=== PATIENT | female | born 1975 | race African-American/Black ===

== ENCOUNTER 2018-06-14 10:04 | Emergency (ER) | payer MEDICAID, OTHER ==
[~2018-06-14] VITALS: Ht 160 cm; Wt 66.7 kg
[~2018-06-14 10:04] MED LIST: ACETAMINOPHEN-1 EAC1 ORAL; ACYCLOVIR400 MG ORAL; AZITHROMYCIN250 MG ORAL; AZITHROMYCIN250 MG PO; CYCLOBENZAPRINE10 MG ORAL; CYCLOBENZAPRINE10 MG PO; FERROUS SULFAT325 MG ORAL; IBUPROFEN600 MG ORAL; IBUPROFEN600 MG PO; NAPROSYN500 M1 ORAL; NKM; TRAMADOL HCL50 MG ORAL
--- NOTE | 2018-06-14 10:29 | Emergency Room Report ---
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 Dumont, but symptoms have been intermittent so she reports not much was done yet. Currently she is not having any pain but reported last night she noticed it got worse and then he was having it intermittently today so came in. She gets it every few weeks she reports. She denies any respirophasic component, but he does seem to worsen at night, denies any vomiting, diarrhea, diaphoresis, syncope, leg swelling, recent travel, hemoptysis. She cannot think of any alleviating or exacerbating factors other than that it is worse at night and then sometimes she is been stressed out about home life situations and that is when she seems to notice it more. Allergies: Coded Allergies: No Known Allergies (Unverified , 02/29/12) Patient History Past Medical History: see triage record Last Menstrual Period: 01/2018 Reviewed Nursing Documentation: PMH: Agreed; PSxH: Agreed Nursing Documentation-PMH Past Medical History: No History, Except For Hx Cardiac Problems: No - SICKLE CELL, KNEE ARTHRITIS Review of Systems All Other Systems: negative except mentioned in HPI Physical Exam Vital Signs Date Time Temp Pulse Resp B/P (MAP) Pulse Ox O2 Delivery O2 Flow Rate FiO2 06/14/18 10:18 97.5 67 16 146/67 99 Room Air Sp02 EP Interpretation: reviewed, normal General Appearance: no apparent distress, alert, non-toxic Head: normocephalic Eyes: bilateral eye normal inspection, bilateral eye PERRL, bilateral eye EOMI ENT: normal ENT inspection, hearing grossly normal, normal pharynx, no angioedema, normal voice, moist mucus membranes Neck: normal inspection, full range of motion, supple, supple/symm/no masses Respiratory: chest non-tender, lungs clear, normal breath sounds, chest symmetrical, palpation of chest normal Cardiovascular #1: normal peripheral pulses, regular rate, rhythm Cardiovascular #2: 2+ radial (R), 2+ radial (L), 2+ dorsalis pedis (R), 2+ dorsalis pedis (L) Gastrointestinal: normal inspection, non tender, soft, no mass, no guarding, no rebound Rectal: deferred Genitourinary: normal inspection, no CVA tenderness Musculoskeletal: back normal, gait/station normal, normal range of motion, non- tender, no calf tenderness, Ronny's Sign negative Neurologic: alert, responsive, merry go round operator III-XII nml as tested, motor strength/tone normal, sensory intact, speech normal Psychiatric: judgement/insight normal, memory normal, mood/affect normal, anxious Skin: normal color, no rash, warm/dry, normal turgor Lymphatic: no adenopathy Medical Decision Making Diagnostic Impression: Primary Impression: Chest pain ER Course Patient with anxiety, is PERC rule negative for PE, no [id number] on ekg, normal workup, suspect anxiety. HEART score deems her low risk for ACS, will have her f/u with her PMD again, or return to ER for recurrent CP, or SOB, or new symptoms. EKG Diagnostic Results EKG Time: 10:22 EP Interpretation: no stemi Rate: normal Rhythm: NSR ST Segments: no acute changes ASA given to the pt in ED: No Rhythm Strip Diag. Results Rhythm Strip Time: 11:27 EP Interpretation: yes Rate: 74 Rhythm: NSR, no PVC's, no ectopy Chest X-Ray Diagnostic Results Chest X-Ray Diagnostic Results : Chest X-Ray Ordered: Yes # of Views/Limited/Complete: 1 View Indication: Chest Pain EP Interpretation: Yes Interpretation: no consolidation, no effusion, no pneumothorax, no acute cardiopulmonary disease Impression: No acute disease Electronically Signed by: Onur Membreno MD Last Vital Signs Date Time Temp Pulse Resp B/P (MAP) Pulse Ox O2 Delivery O2 Flow Rate FiO2 06/14/18 10:18 97.5 67 16 146/67 99 Room Air Disposition: HOME, SELF-CARE Condition: Stable Referrals: NON PHYSICIAN (PCP) ONUR MEMBRENO M.D Jun 14, 2018 10:29
[2018-06-14 10:45] VITALS: BP 146/67
[2018-06-14 10:49] LABS: BASOPHILS % (AUTO) 0.7 % (0.0-2.0); EOSINOPHILS % (AUTO) 5.1 % (0.0-3.0); HEMATOCRIT 31.5 % (37.0-47.0); LYMPHOCYTES % (AUTO) 38.5 % (20.0-45.0); MEAN CORPUSCULAR VOLUME 74 FL (80-99); MONOCYTES % (AUTO) 9.3 % (1.0-10.0); NEUTROPHILS % (AUTO) 46.4 % (45.0-75.0); PLATELET COUNT 148 K/UL (150-450); RED BLOOD COUNT 4.25 M/UL (4.20-5.40); RED CELL DISTRIBUTION WIDTH 14.3 % (11.6-14.8); WHITE BLOOD COUNT 3.6 K/UL (4.8-10.8)
[2018-06-14 10:55] LABS: ANION GAP 9 mmol/L (5-15); BLOOD UREA NITROGEN 8 mg/dL (7-18); CALCIUM 9.1 MG/DL (8.5-10.1); CARBON DIOXIDE 26 MMOL/L (21-32); CHLORIDE 106 MMOL/L (98-107); CREATININE 0.7 MG/DL (0.55-1.30); POTASSIUM 4.2 MMOL/L (3.5-5.1); SODIUM 141 MMOL/L (136-145)
--- NOTE | 2018-06-14 10:55 | NUR ---
ED Nurse Note:pt. c/o on/off chest pain for 4 months, also reported going through lots of personal stress, A/Ox4 ambulatory, VSS, urine and blood sent to labs
[2018-06-14 11:00] LABS: ALANINE AMINOTRANSFERASE 31 U/L (12-78); ALBUMIN/GLOBULIN RATIO 1.2 (1.0-2.7); ALKALINE PHOSPHATASE 59 U/L (46-116); ASPARTATE AMINO TRANSFERASE 22 U/L (15-37); BILIRUBIN,TOTAL 0.6 MG/DL (0.2-1.0)
[2018-06-14] MEDS ORDERED: PEPCID AC20 M2 PO (11:32)
[2018-06-14 12:02] VITALS: BP 139/68
--- NOTE | 2018-06-14 12:09 | Diagnostic Imaging Report ---
Indication: Chest pain Technique: One view of the chest Comparison: none Findings: Lungs and pleural spaces are clear. Heart size is normal Impression: No acute process
[2018-06-14 12:10] VITALS: BP 139/68
--- NOTE | 2018-06-14 12:11 | NUR ---
ER DISCHARGE NOTE: Patient is cleared to be discharged per ERMD, pt is aox4, on room air, with stable vital signs. pt was given dc and prescription instructions, pt was able to verbalize understanding, pt id band and iv site removed without complications. pt is able to ambulate with steady gait. pt took all belongings.
== END 2018-06-14 12:11 | disposition home or self-care (01) ==
LOC: EMR 10:20
DX: R07.89 Other chest pain (principal); D57.1 Sickle-cell disease without crisis; M19.90 Unspecified osteoarthritis, unspecified site
CPT/HCPCS: 36415; 71045; 80053; 84484; 85025; 93005; 99284

== ENCOUNTER 2018-06-19 12:04 | Emergency (ER) | payer MEDICAID ==
[~2018-06-19] VITALS: Ht 160 cm; Wt 66.7 kg
--- NOTE | 2018-06-19 12:03 | NUR ---
ED Nurse Note: Pt BIBA from home w/ complaints of lower back pain and spasm in the area since last night. Pt is complaining of 10/10 pain. Non radiating. Pt appeared in the Er w/ facial grimacing. Tenderness to touch on the lower back. Pt denies injury. Pt is a + o x4. Ambulatory. Skin warm to touch.
[2018-06-19 12:04] VITALS: BP 122/74
[~2018-06-19 12:04] MED LIST changes: +PEPCID AC20 M2 PO
[2018-06-19] MEDS ORDERED: Morphine Sulfate 4mg/ml Inj (IV USE ONLY) IVP ONE ×2 (12:45→14:15)
[2018-06-19] MEDS ORDERED: Ketorolac 30mg Inj IV ONE (12:45)
[2018-06-19] MEDS ORDERED: Methocarbamol 500mg tab ORAL ONE (12:45)
--- NOTE | 2018-06-19 12:53 | NUR ---
ED Nurse Note: blood and urine sent to lab
[2018-06-19 13:09] LABS: APPEARANCE,URINE CLEAR; BILIRUBIN, URINE NEGATIVE (NEGATIVE); COLOR,URINE PALE YELLOW; GLUCOSE, URINE (UA) NEGATIVE (NEGATIVE); KETONES,URINE NEGATIVE (NEGATIVE); LEUKOCYTE ESTERASE ,URINE NEGATIVE (NEGATIVE); NITRITE,URINE NEGATIVE (NEGATIVE); PH,URINE 5 (4.5-8.0); PROTEIN,URINE NEGATIVE (NEGATIVE); UROBILINOGEN,URINE NORMAL MG/DL (0.0-1.0)
[2018-06-19 13:14] LABS: BASOPHILS % (AUTO) 1.3 % (0.0-2.0); EOSINOPHILS % (AUTO) 2.3 % (0.0-3.0); HEMATOCRIT 27.9 % (37.0-47.0); LYMPHOCYTES % (AUTO) 22.5 % (20.0-45.0); MEAN CORPUSCULAR VOLUME 74 FL (80-99); MONOCYTES % (AUTO) 5.3 % (1.0-10.0); NEUTROPHILS % (AUTO) 68.7 % (45.0-75.0); PLATELET COUNT 168 K/UL (150-450); RED BLOOD COUNT 3.77 M/UL (4.20-5.40); RED CELL DISTRIBUTION WIDTH 14.8 % (11.6-14.8); WHITE BLOOD COUNT 13.8 K/UL (4.8-10.8)
[2018-06-19 13:23] LABS: ANION GAP 10 mmol/L (5-15); BLOOD UREA NITROGEN 10 mg/dL (7-18); CALCIUM 9.8 MG/DL (8.5-10.1); CARBON DIOXIDE 29 MMOL/L (21-32); CHLORIDE 103 MMOL/L (98-107); CREATININE 0.7 MG/DL (0.55-1.30); POTASSIUM 3.7 MMOL/L (3.5-5.1); SODIUM 142 MMOL/L (136-145)
[2018-06-19 13:35] LABS: ALANINE AMINOTRANSFERASE 35 U/L (12-78); ALBUMIN 4.2 G/DL (3.4-5.0); ALBUMIN/GLOBULIN RATIO 1.3 (1.0-2.7); ALKALINE PHOSPHATASE 87 U/L (46-116); ASPARTATE AMINO TRANSFERASE 29 U/L (15-37)
[2018-06-19 14:11] VITALS: BP 106/80
--- NOTE | 2018-06-19 15:33 | Emergency Room Report ---
History of Present Illness General Chief Complaint: Back Pain-No Injury Source: Patient Present Illness HPI Patient presents with increased back pain. This is worsened over the last 3 days. 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 She states she feels muscle spasms. The pain does not radiate to her legs. Patient has sickle SC.disease. This does not feel like an exacerbation of that. She denies fevers or chills although she complains of hot flashes. There is no incontinence, extremity numbness, recent trauma, oncologic problems or use of blood thinners. Prior to coming in she took Percocet and Naprosyn which helps somewhat. The pain is rated 10/10 aching and spasms. She is been seen in the past with exacerbation of back pain. She believes that the change in her job may be related to her presentation today. Her last period was in 2015. She is uncertain why her menstruation stopped. In 2013 her diagnosis was drug-seeking behavior. Allergies: Coded Allergies: No Known Allergies (Unverified , 02/29/12) Patient History Past Medical History: see triage record, other - SC disease Social History: Denies: smoking, alcohol use, drug use Social History Narrative one of her twins brought her -there 20 years old -[place] for [employer] Last Menstrual Period: 2016 Now: No Reviewed Nursing Documentation: PMH: Agreed; PSxH: Agreed Nursing Documentation-PMH Past Medical History: No History, Except For Review of Systems All Other Systems: negative except mentioned in HPI Physical Exam Vital Signs Date Time Temp Pulse Resp B/P (MAP) Pulse Ox O2 Delivery O2 Flow Rate FiO2 06/19/18 11:54 98.4 82 20 06/19/18 11:54 126/69 100 Room Air Sp02 EP Interpretation: reviewed, normal General Appearance: well appearing, GCS 15, mild distress Head: normocephalic Eyes: bilateral eye normal inspection, bilateral eye PERRL, bilateral eye EOMI ENT: moist mucus membranes Neck: supple Respiratory: lungs clear, normal breath sounds Cardiovascular #1: regular rate, rhythm Cardiovascular #2: 2+ radial (R) Gastrointestinal: normal inspection, normal bowel sounds, non tender, no mass, non-distended Musculoskeletal: gait/station normal, normal range of motion, tender - Lumbar spine with muscle spasm paraspinous muscles straight leg raise negative bilaterally but increased lumbar pain. Neurologic: alert, oriented x3, motor strength/tone normal, DTRs symmetric, sensory intact Psychiatric: mood/affect normal - But in pain Skin: normal inspection, warm/dry Medical Decision Making Diagnostic Impression: Primary Impression: Back pain Qualified Codes: M54.5 - Low back pain Additional Impression: Muscle spasm ER Course Patient with SC disease presents withLumbar pain with repetitive motion. There are no red flag symptoms. Differential includes lumbar strain, muscle spasm, UTI amongst others. Imaging is not indicated. Labs and urinalysis ordered. Treatment with IV analgesia with morphine, Toradol and Robaxin. Labs significant for white count 13.8. No left shift. CMP normal. Urinalysis clear. Patient still complaining about pain. Morphine repeated. Discussed findings with patient and most likely etiology of back pain. She states she still feels some spasming of her lower back. Discussed treatment plan and recommended physical therapy. Patient has Percocet at home. Patient stable for outpatient observation and treatment. Laboratory Tests Test 06/19/18 12:40 White Blood Count 13.8 K/UL (4.8-10.8) H Red Blood Count 3.77 M/UL (4.20-5.40) L Hemoglobin 9.0 G/DL (12.0-16.0) L Hematocrit 27.9 % (37.0-47.0) L Mean Corpuscular Volume 74 FL (80-99) L Mean Corpuscular Hemoglobin 23.8 PG (27.0-31.0) L Mean Corpuscular Hemoglobin Concent 32.3 G/DL (32.0-36.0) Red Cell Distribution Width 14.8 % (11.6-14.8) Platelet Count 168 K/UL (150-450) Mean Platelet Volume 7.6 FL (6.5-10.1) Neutrophils (%) (Auto) 68.7 % (45.0-75.0) Lymphocytes (%) (Auto) 22.5 % (20.0-45.0) Monocytes (%) (Auto) 5.3 % (1.0-10.0) Eosinophils (%) (Auto) 2.3 % (0.0-3.0) Basophils (%) (Auto) 1.3 % (0.0-2.0) Prothrombin Time 10.9 SEC (9.30-11.50) Prothrombin Time INR 1.0 (0.9-1.1) PTT 24 SEC (23-33) Urine Color Pale yellow Urine Appearance Clear Urine pH 5 (4.5-8.0) Urine Specific [place] 1.020 (1.005-1.035) Urine Protein Negative (NEGATIVE) Urine Glucose (UA) Negative (NEGATIVE) Urine Ketones Negative (NEGATIVE) Urine Blood 1+ (NEGATIVE) H Urine Nitrite Negative (NEGATIVE) Urine Bilirubin Negative (NEGATIVE) Urine Urobilinogen Normal MG/DL (0.0-1.0) Urine Leukocyte Esterase Negative (NEGATIVE) Urine RBC 0-2 /HPF (0 - 2) Urine WBC 0-2 /HPF (0 - 2) Urine Squamous Epithelial Cells Few /LPF (NONE/OCC) Urine Bacteria Occasional /HPF (NONE) Urine Mucus Moderate /LPF (NONE/OCC) H Urine HCG, Qualitative Negative (NEGATIVE) Sodium Level 142 MMOL/L (136-145) Potassium Level 3.7 MMOL/L (3.5-5.1) Chloride Level 103 MMOL/L (98-107) Carbon Dioxide Level 29 MMOL/L (21-32) Anion Gap 10 mmol/L (5-15) Blood Urea Nitrogen 10 mg/dL (7-18) Creatinine 0.7 MG/DL (0.55-1.30) Estimate Glomerular Filtration Rate > 60 mL/min (>60) Glucose Level 93 MG/DL (74-106) Calcium Level 9.8 MG/DL (8.5-10.1) Total Bilirubin 1.0 MG/DL (0.2-1.0) Aspartate Amino Transferase (AST) 29 U/L (15-37) Alanine Aminotransferase (ALT) 35 U/L (12-78) Alkaline Phosphatase 87 U/L (46-116) Total Protein 7.4 G/DL (6.4-8.2) Albumin 4.2 G/DL (3.4-5.0) Globulin 3.2 g/dL Albumin/Globulin Ratio 1.3 (1.0-2.7) Last Vital Signs Date Time Temp Pulse Resp B/P (MAP) Pulse Ox O2 Delivery O2 Flow Rate FiO2 06/19/18 15:43 98.4 73 16 103/64 98 Room Air Status: improved Disposition: HOME, SELF-CARE Condition: Improved Scripts Ibuprofen* (MOTRIN*) 600 Mg Tablet 600 MG ORAL Q6H PRN for For Pain, #16 TAB Prov: Bon Borjas MD 06/19/18 Methocarbamol* (ROBAXIN*) 500 Mg Tablet 500 MG PO TID, #10 TAB 0 Refills Prov: Bon Borjas MD 06/19/18 Bon Borjas MD Jun 19, 2018 15:33
[2018-06-19] MEDS ORDERED: ROBAXIN500 MG PO (15:36)
[2018-06-19] MEDS ORDERED: IBUPROFEN600 MG ORAL (15:36)
[2018-06-19 15:43] VITALS: BP 103/64
== END 2018-06-19 15:54 | disposition home or self-care (01) ==
LOC: EDBD 12:04 → EMR 13:45
DX: M54.5 Low back pain (principal); M62.830 Muscle spasm of back; D57.1 Sickle-cell disease without crisis
CPT/HCPCS: 36415; 80053; 81001; 81025; 85025; 85610; 85730; 96374; 96375; 96376; 99284; J1885; J2270; J2405

== ENCOUNTER 2018-09-11 05:16 | Emergency (ER) | payer MEDICAID ==
[~2018-09-11] VITALS: Ht 165.1 cm; Wt 67.1 kg
[~2018-09-11 05:16] MED LIST changes: +NEOMYC-POLYM-D3.5 G1 OP; +ROBAXIN500 MG PO
[2018-09-11 05:36] VITALS: BP 150/94
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
--- NOTE | 2018-09-11 05:39 | NUR ---
ED Nurse Note: pt states she took percocet at home but didn't relieve pain .
[2018-09-11] MEDS ORDERED: Acetaminophen 500mg (ES) tab ORAL ONE (05:45)
[2018-09-11] MEDS ORDERED: VALIUM5 MG ORAL (05:47)
[2018-09-11] MEDS ORDERED: HYDROCODON-ACE1 EA15 ORAL (05:47)
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
--- NOTE | 2018-09-11 06:44 | NUR ---
ED Nurse Note: pt cleared to be d/c per ERMD pt discharge and aftercare instruction provided w/ prescription, pt education done via discussion and handout, pt advised to follow up with pcp or return to ed if changes in condition, pt verbalized understanding and agrees with plan, vss, ambulatory w/ steady gait left w/ all belongings. soft collar applied prior to dc by needle loom weaver.
[2018-09-11 06:45] VITALS: BP 145/76
--- NOTE | 2018-09-11 12:14 | Diagnostic Imaging Report ---
Indication: Neck Pain Findings: 5 views of the cervical spine were obtained. There is no fracture. There is moderate narrowing of the C4-5, C5-6 and C6-7 discs with endplate osteophyte formation. Uncovertebral spurs are present at multiple levels bilaterally probably slightly worse on the right. There may be mild narrowing of the neural foramen on the right at the C3-4 and C4-5. Findings may be confirmed and further evaluated on cross-sectional imaging as needed. The open-mouth view is negative the showing good alignment. IMPRESSION: Moderate degenerative disease of the cervical spine as described above
== END 2018-09-11 06:45 | disposition home or self-care (01) ==
LOC: EMR 05:39
DX: S16.1XXA Strain of muscle, fascia and tendon at neck level, initial encounter (principal); V43.52XA Car driver injured in collision with other type car in traffic accident, initial encounter; Y92.410 Unspecified street and highway as the place of occurrence of the external cause
CPT/HCPCS: 72052; 99283

== ENCOUNTER 2020-05-23 20:46 | Emergency (ER) | payer MEDICAID ==
[~2020-05-23] VITALS: Ht 160 cm; Wt 67.6 kg
[~2020-05-23 20:46] MED LIST changes: +HYDROCODON-ACE1 EA15 ORAL; +VALIUM5 MG ORAL
--- NOTE | 2020-05-23 21:00 | NUR ---
Pte came to Er ambulatory c/o chest pain since 4 hours ago , pte says she ate a food a then the pain begun . New orders received from EDP and carried out. All procedures were explain to the patient . Patient verbalized understanding. Safety and comfort measures taken: bed set in low position, frequent rounds, call light within reach. Will continue monitoring the patient during the sift.
[2020-05-23 21:20] VITALS: BP 111/74
[2020-05-23] MEDS ORDERED: Lidocaine 2% Visc 15ml soln ORAL ONE (21:30)
[2020-05-23 22:00] VITALS: BP 136/89
[2020-05-23 22:02] LABS: APPEARANCE,URINE CLEAR; BASOPHILS % (AUTO) 2.1 % (0.0-2.0); BILIRUBIN, URINE NEGATIVE (NEGATIVE); COLOR,URINE PALE YELLOW; EOSINOPHILS % (AUTO) 2.1 % (0.0-3.0); GLUCOSE, URINE (UA) NEGATIVE (NEGATIVE); HEMATOCRIT 31.4 % (37.0-47.0); KETONES,URINE NEGATIVE (NEGATIVE); LEUKOCYTE ESTERASE ,URINE NEGATIVE (NEGATIVE); LYMPHOCYTES % (AUTO) 33.8 % (20.0-45.0); MEAN CORPUSCULAR VOLUME 73 FL (80-99); MONOCYTES % (AUTO) 7.1 % (1.0-10.0); NEUTROPHILS % (AUTO) 54.8 % (45.0-75.0); NITRITE,URINE NEGATIVE (NEGATIVE); PH,URINE 9 (4.5-8.0); PLATELET COUNT 162 K/UL (150-450); PROTEIN,URINE NEGATIVE (NEGATIVE); RED BLOOD COUNT 4.28 M/UL (4.20-5.40); RED CELL DISTRIBUTION WIDTH 16.2 % (11.6-14.8); UROBILINOGEN,URINE NORMAL MG/DL (0.0-1.0); WHITE BLOOD COUNT 6.9 K/UL (4.8-10.8)
--- NOTE | 2020-05-23 22:03 | Diagnostic Imaging Report ---
EXAM: XR Chest, 1 View CLINICAL HISTORY: CP TECHNIQUE: Frontal view of the chest. COMPARISON: 06/14/2018 FINDINGS: Lungs: No consolidation or mass. Pleural space: No acute findings Heart: No cardiomegaly. Bones/joints: No acute findings. IMPRESSION: No acute cardiopulmonary process.
--- NOTE | 2020-05-23 22:09 | NUR ---
Patient in bed in comfortable position and stable condition. All vitals signs were taken and reported. Urine and blood were collected and sent them to the lab. All medications were administered without adverse reaction. Patient continuous attached to the monitor.
[2020-05-23 22:16] LABS: ANION GAP 9 mmol/L (5-15); BLOOD UREA NITROGEN 15 mg/dL (7-18); CARBON DIOXIDE 30 MMOL/L (21-32); CHLORIDE 108 MMOL/L (98-107); CREATININE 0.7 MG/DL (0.55-1.30); POTASSIUM 4.2 MMOL/L (3.5-5.1); SODIUM 147 MMOL/L (136-145)
[2020-05-23 22:28] LABS: ALANINE AMINOTRANSFERASE 55 U/L (12-78); ALBUMIN 4.6 G/DL (3.4-5.0); ALBUMIN/GLOBULIN RATIO 1.4 (1.0-2.7); ALKALINE PHOSPHATASE 78 U/L (46-116); ASPARTATE AMINO TRANSFERASE 37 U/L (15-37); BILIRUBIN,TOTAL 1.4 MG/DL (0.2-1.0)
--- NOTE | 2020-05-23 22:28 | Emergency Room Report ---
History of Present Illness General Chief Complaint: Chest Pain Source: Patient, Medical Record Present Illness HPI 44-year-old -[place] female with past medical history of sickle cell trait presents emergency department with chief complaint of nonspecific chest pain x4 hours prior to arrival. Onset of symptoms was after eating natural hot chicken sandwich x2. She states that she felt like "acid" was regurgitating of her throat. She was transiently nauseous as well so she wanted to come to the emergency department for further evaluation. She denies any shortness of breath, cough, hemoptysis, fever, chills, vomiting, diarrhea, dyspnea on exertion, orthopnea or any other symptoms. She denies history of PE/DVT, recent trauma or immobilization, recent surgery, or sedentary lifestyle. The patient's symptoms were gradual onset, severity was moderate, duration since 1 day. Quality: Acidic Past medical history: Sickle cell trait Past surgical history: Smoking: Vapes Alcohol use: Denies Drug use: Denies Review of systems: CONST: No fevers or chills, No night sweats PULMONARY: No productive cough, No shortness of breath CARDIAC: ++ chest pain, No palpitations GI: No vomiting, No diarrhea , No melena_or_BRBPR : No dysuria, No hematuria, No discharge NEURO: No new_focal_weakness_or_numbness, No confusion, No vision changes 14 point Review of Systems is otherwise negative except per HPI Physical Exam: GENERAL: Awake_alert_ nontoxic, no acute distress Spo2 100% on RA -normal EYES: Extraocular muscles are intact. Conjunctivae clear. Lids without swelling ENT: External nose and ear normal_in_appearance. Oropharynx clear. Head_atraumatic, Moist_oral_mucosa NECK: No JVD. No meningismus. No thyromegaly. Supple. Trachea midline RESP: Normal respiratory effort. Symmetric rise. No stridor. Clear_to_auscultation_No_rales_No_wheezes CARDIAC: Regular rate and regular rhytm. No_significant pedal edema. Reproducible anterior chest wall tenderness to palpation ABDOMEN: Soft. Nondistended. Nontender_No_rebound_or_guarding. MSK: Normal muscle tone, without rigidity. Extremities without asymmetric deformity or swelling. SKIN: Warm and dry. No visible cyanosis or pallor NEUROLOGIC: Alert, oriented x3. Motor_and_sensation_grossly_intact. No truncal ataxia. Gait_normal Psych: Normal mood and affect, normal judgment and insight - COORDINATION OF CARE Case was discussed with: Patient Any labs and imaging that were ordered were interpreted as part of the medical decision makin-lead EKG (interpreted by me) Time: 2009 Indication: Rhythm analysis Tracing visualized and Interpreted by me. Rhythm: Normal sinus rhythm Rate: 82 bpm QTc: 432 Morphology: No_significant_ST_elevations_or_depressions, No STEMI Impression: Normal_sinus_rhythm_without_significant_abnormality. Twi V3, III 12-lead EKG (interpreted by me) Time: 2238 Indication: Rhythm analysis Tracing visualized and Interpreted by me. Rhythm: Normal sinus rhythm Rate: 83 bpm QTc: 458 Morphology: No_significant_ST_elevations_or_depressions, No STEMI Impression: Normal_sinus_rhythm_without_significant_abnormality. Twi V3, III Chest X-Ray: Views: 1 view(s) Indication: Chest pain Findings: Normal heart size. Mediastinum normal. No infiltrate. Impression: NAD The X-ray(s) were independently viewed and interpreted contemporaneously Electronically signed by , Roxanne Oseguera DO Medical Decision Making/Plan: Differential includes acute coronary syndrome, pulmonary embolism, pneumonia, aortic dissection, pericardial tamponade, musculoskeletal chest pain, among others. Patient is nontoxic and well-appearing with stable vitals signs. The patients pain appears consistent with a musculoskeletal origin versus gastritis/reflux due to poor diet. Pain is reproducible with palpation. Abdominal examination is benign. Negative Jernigan's, negative obturator, negative Rovsing sign. Doubt acute surgical abdomen. EKG shows normal sinus rhythm without any obvious signs of ischemia. No significant right heart strain. There are isolated noncontiguous T wave inversions in lead V3 and 3. Repeat EKG showed no evolving ischemia CXR shows no evidence of pneumothorax, pneumonia, or significant pleural effusion. CTA showed no evidence of PE, dissection, or aneurysm. Incidental finding of 5mm R lung base nodule and 3mm left lung base nodule. Patient was informed of these incidental findings. Delta Troponin negative x2. ED intervention included GI cocktail, morphine, Zofran with full relief of symptoms. Educated patient on dietary modification to avoid reflux/gastritis symptoms. Acute coronary syndrome is unlikely and the patient is low risk, pain is atypical, nonexertional, and troponin is negative with over 6 hrs of symptoms. Heart score is 2. The pain is not classic for pericarditis or myocarditis, and the patient has no significant risk factors for a pericardial effusion and has stable vitals signs, unlikely to have tamponade. The patient has no significant risk factors for aortic dissection, no history of connective tissue disorder, and the patients pain is not severe, radiating to the back, or tearing in nature. They have normal bilateral radial and pedal pulses. Doubt dissection. Doubt AAA. Patient observed for several hours in the ED, ECG with no emergent findings, patient discharged with no dangerous vital signs, patient instructed to follow up with PMD in the next 1-2 days to be referred for a treadmill stress test within the next 48-72 hours. HEART score 2, which indicates low risk, so the patient can be safely discharged with the understanding that they need to make an appointment with a primary care doctor to be referred for a stress test within the next 48-72 hours, or if they cannot arrange that they are to return to the ED, or sooner than that if they have any changing, persistent, or worsening symptoms. 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 Aorta: No thoracic aortic aneurysm. Lungs: No mass. No consolidation. 5 mm nodule in the right lung base and 3 mm nodule in the left lung base. Pleural space: No pneumothorax. No effusion. Heart: No cardiomegaly. No pericardial effusion. Bones/joints: No acute fracture or dislocation. Soft tissues: Unremarkable. Lymph nodes: No enlarged lymph nodes. IMPRESSION: 1. No pulmonary embolism. 2. 5 mm nodule in the right lung base and 3 mm nodule in the left lung base. Fleishner Society Guideline 2017: Multiple nodule size: <6 mm -low-risk patients: no follow-up needed -high-risk patients: optional CT at 12 months EXCLUSIONS: 1. Patients aged 35 years or younger 2. Patients with known malignancy 3. Immunocompromised patients 4. Lung cancer screening population Low-risk patients: a minimal or absent history of smoking and or other known risk factors High-risk patients: a history of smoking or of other known risk factors (e.g. first degree relative with lung cancer, or exposure to asbestos, radon, uranium). Radiologist: Arian Jackson MD Last Vital Signs Date Time Temp Pulse Resp B/P (MAP) Pulse Ox O2 Delivery O2 Flow Rate FiO2 05/23/20 21:20 86 20 Room Air 05/23/20 21:20 98.2 111/74 100 Disposition: HOME, SELF-CARE Admit Decision Time: 00:00 Condition: Stable Scripts Naproxen* (NAPROXEN*) 500 Mg Tablet.dr 500 MG ORAL TWICE A DAY for 7 Days, #14 TAB Prov: Roxanne Oseguera D.O. 05/23/20 Omeprazole (OMEPRAZOLE) 20 Mg Capsule.dr 20 MG ORAL DAILY for Gerd for 15 Days, #30 CAP Prov: Roxanne Oseguear D.O. 05/23/20 Ondansetron Odt* (ZOFRAN ODT*) 4 Mg Tab.rapdis 4 MG BC EVERY 6 HOURS PRN for Nausea & Vomiting, #10 TAB 0 Refills Prov: Roxanne Oseguera D.O. 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 Return to the ER immediately if you have recurrent chest pain. Please avoid any triggers for gastritis including spicy and greasy foods, alcohol, excessive caffeine. Follow-up with your doctor sooner if your condition requires a more timely clinical reevaluation. Return to the emergency department immediately if you feel that your condition is worsening or if you have any new or concerning symptoms. Review your discharge instructions and take any prescriptions given as instructed. You were found to have an abnormality on your imaging which will need to be reimaged in approximately 3 months. Cancer or malignancy is one of the possibilities so it needs to be monitored to ensure that it is not changing. It is important that you see a primary doctor to be referred for this imaging. Failure to do so could lead to undetected worsening cancer or illness. [facility] PROVIDES FREE OR LOW-COST HEALTH SERVICES TO PEOPLE WHO CAN SHOW PROOF THAT THEY LIVE IN [facility]. TO FIND MORE CLINICS PARTNERED WITH [facility] TO PROVIDE SERVICE, PLEASE CALL . Roxanne Oseguera D.O. May 23, 2020 22:28
[2020-05-23] MEDS ORDERED: Morphine Sulfate 4mg/ml Inj (IV USE ONLY) IVP ONE (22:30)
[2020-05-23 22:33] LABS: BILIRUBIN,DIRECT 0.3 MG/DL (0.0-0.3)
[2020-05-23] MEDS ORDERED: ONDANSETRON ODT4 MG BC (23:48)
[2020-05-23] MEDS ORDERED: NAPROXEN500 M1 ORAL (23:48)
[2020-05-23] MEDS ORDERED: OMEPRAZOLE20 M2 ORAL (23:48)
--- NOTE | 2020-05-24 00:23 | Diagnostic Imaging Report ---
EXAM: CT Angiography Chest With Intravenous Contrast CLINICAL HISTORY: PE TECHNIQUE: Axial computed tomographic angiography images of the chest with intravenous contrast. CTDI is 40.4 mGy and DLP is 192 mGy-cm. One or more of the following dose reduction techniques were used: automated exposure control, adjustment of the mA and/or kV according to patient size, use of iterative reconstruction technique. MIP reconstructed images were created and reviewed. COMPARISON: No relevant prior studies available. FINDINGS: Pulmonary arteries: No filling defects. Aorta: No thoracic aortic aneurysm. Lungs: No mass. No consolidation. 5 mm nodule in the right lung base and 3 mm nodule in the left lung base. Pleural space: No pneumothorax. No effusion. Heart: No cardiomegaly. No pericardial effusion. Bones/joints: No acute fracture or dislocation. Soft tissues: Unremarkable. Lymph nodes: No enlarged lymph nodes. IMPRESSION: 1. No pulmonary embolism. 2. 5 mm nodule in the right lung base and 3 mm nodule in the left lung base. Fleishner Society Guideline 2017: Multiple nodule size: <6 mm -low-risk patients: no follow-up needed -high-risk patients: optional CT at 12 months EXCLUSIONS: 1. Patients aged 35 years or younger 2. Patients with known malignancy 3. Immunocompromised patients 4. Lung cancer screening population Low-risk patients: a minimal or absent history of smoking and or other known risk factors High-risk patients: a history of smoking or of other known risk factors (e.g. first degree relative with lung cancer, or exposure to asbestos, radon, uranium).
--- NOTE | 2020-05-24 00:34 | NUR ---
Pt given IV morphine for pain and IV zofran. Pt reported 6/10 pain and continues to state that it's still a 6/10 chest pain but improving slowly. Pt is hyperverbal and rubs at her chest. Pt ambulates to the restroom with steady gait, no SS of dizziness and is independent.
--- NOTE | 2020-05-27 10:37 | Cardiology Report ---
APPROVED REPORT EKG Measurement Heart [id number] MI [id number] [id number] <Conclusion> Normal sinus rhythm Nonspecific T wave abnormality Abnormal ECG
--- NOTE | 2020-05-27 10:38 | Cardiology Report ---
APPROVED REPORT EKG Measurement Heart [id number] <Conclusion> Normal sinus rhythm Normal ECG
== END 2020-05-24 01:00 | disposition home or self-care (01) ==
LOC: EMR 21:20
DX: R07.89 Other chest pain (principal); D57.3 Sickle-cell trait; R91.1 Solitary pulmonary nodule
CPT/HCPCS: 36415; 71045; 71275; 80053; 81003; 82248; 83690; 83880; 84484; 84702; 85025; 85379; 85610; 85730; 93005; 96374; 96375; J2270; J2405; Q9967; Z7502; 99284